=== PATIENT | male | born 1965 | race African-American/Black ===

== ENCOUNTER 2023-04-17 15:30 | Inpatient (IN) | payer BC, OTHER ==
[~2023-04-17] VITALS: Ht 180.3 cm; Wt 104.1 kg
[2023-04-17 16:46] LABS: Basophils # (auto) 0 10 ^3/uL (0-0.2); Basophils % (auto) 0.4 % (0.0-2.0); Eosinophils # (auto) 0.2 10 ^3/uL (0-0.8); Eosinophils % (auto) 2.5 % (0.0-7.0); Hematocrit 48.7 % (41.0-53.0); Hemoglobin 16.8 g/dL (13.5-17.5); Lymphocytes # (auto) 1.6 10 ^3/uL (0.4-5.4); Lymphocytes % (auto) 18.5 % (10.0-50.0); Mean Corpuscular Hemoglobin 31.1 pg (28.0-32.0); Mean Corpuscular Hgb Conc. 34.6 g/dL (32.0-36.0); Mean Corpuscular Volume 90.1 fL (80.0-100.0); Monocytes # (auto) 0.6 10 ^3/uL (0-1.3); Monocytes % (auto) 6.3 % (0.0-12.0); Neutrophils # (auto) 6.5 10 ^3/uL (1.6-8.6); Neutrophils % (auto) 72.3 % (37.0-80.0); Nucleated Red Blood Cells % 0.1 %; Red Blood Cells 5.41 10^6/uL (4.5-5.90); Red Cell Distribution Width 13.5 % (11.8-14.3); White Blood Cell 8.9 10^3/uL (4.4-10.8)
[2023-04-17 17:10] LABS: Albumin 4.6 g/dL (3.4-5.0); Calcium 9.4 mg/dL (8.5-10.1)
[2023-04-17 17:14] LABS: BUN/Creatinine Ratio 9.2 (10.0-20.0); Bilirubin, Total 0.5 mg/dL (0.2-1.0); Total Protein 7.6 g/dL (6.4-8.2)
[2023-04-17 23:33] LABS: Urine Bacteria NONE SEEN /hpf (None Seen); Urine Blood Negative /uL (Negative); Urine Specific Gravity 1.006 (1.001-1.035); Urine WBC 1 /hpf (0 - 3)
[2023-04-18] MEDS ORDERED: ONDANSETRON HCL 4 MG/2 ML VIAL IV PRN (01:00)
[2023-04-18] MEDS ORDERED: DEXTROSE (50%) 50ML SYRG IV PRN (01:00)
[2023-04-18] MEDS ORDERED: TEMAZEPAM 15 MG CAP PO PRN (01:00)
[2023-04-18] MEDS ORDERED: ACETAMINOPHEN 325 MG TAB PO PRN (01:00)
[2023-04-18] MEDS ORDERED: cloNIDine HCL 0.1 MG TAB PO PRN (01:00)
[2023-04-18] MEDS: ACCU-CHEK COMFORT CURVE STRIP VI SCH ×4 (06:41→21:33)
[2023-04-18 06:51] LABS: BUN/Creatinine Ratio 10.3 (10.0-20.0); Calcium 9.1 mg/dL (8.5-10.1); Potassium 3.6 mmol/L (3.5-5.1)
[2023-04-18] MEDS: InsuLIN REG 1unit/0.01ml Soln (100units/ml) SC SCH ×4 (06:56→21:35)
[2023-04-18 09:39] VITALS: BP 127/88
[2023-04-18] MEDS: LISINOPRIL 10 MG TAB PO SCH (10:41)
[2023-04-18] MEDS: PANTOPRAZOLE 40 MG TAB PO SCH (10:42)
[2023-04-18] MEDS: ASPirin 81 mg TAB PO SCH (10:42)
[2023-04-18] MEDS: ENOXAPARIN SOD 40 MG/0.4 ML SYRINGE SC SCH (10:43)
[2023-04-18 11:00] VITALS: BP 110/54
[2023-04-18 13:00] VITALS: BP_SYST 122; BP_SYST 167; BP_DIAS 113; BP_DIAS 73
[2023-04-18] MEDS ORDERED: LORazepam 2MG/ML-1ML VIAL IV ONE (16:15)
[2023-04-18 17:00] VITALS: BP 131/81
[2023-04-18 22:00] VITALS: BP 103/67
[2023-04-18] MEDS ORDERED: ATORVASTATIN 20 MG TAB PO SCH (22:00)
[2023-04-19 03:00] VITALS: BP 103/67
[2023-04-19 05:00] VITALS: BP 121/65
[2023-04-19 05:16] LABS: Basophils # (auto) 0 10 ^3/uL (0-0.2); Basophils % (auto) 0.6 % (0.0-2.0); Eosinophils # (auto) 0.2 10 ^3/uL (0-0.8); Eosinophils % (auto) 4.2 % (0.0-7.0); Hematocrit 46.1 % (41.0-53.0); Hemoglobin 16.2 g/dL (13.5-17.5); Lymphocytes # (auto) 1.6 10 ^3/uL (0.4-5.4); Lymphocytes % (auto) 30.8 % (10.0-50.0); Mean Corpuscular Hemoglobin 31.2 pg (28.0-32.0); Mean Corpuscular Volume 89.1 fL (80.0-100.0); Monocytes # (auto) 0.6 10 ^3/uL (0-1.3); Monocytes % (auto) 11.2 % (0.0-12.0); Neutrophils # (auto) 2.7 10 ^3/uL (1.6-8.6); Neutrophils % (auto) 53.2 % (37.0-80.0); Nucleated Red Blood Cells % 0.1 %; Red Blood Cells 5.18 10^6/uL (4.5-5.90); Red Cell Distribution Width 13.5 % (11.8-14.3); White Blood Cell 5.1 10^3/uL (4.4-10.8)
[2023-04-19 05:37] LABS: BUN/Creatinine Ratio 12.8 (10.0-20.0); Calcium 9.5 mg/dL (8.5-10.1); Potassium 3.8 mmol/L (3.5-5.1)
[2023-04-19] MEDS: InsuLIN REG 1unit/0.01ml Soln (100units/ml) SC SCH (06:14)
[2023-04-19] MEDS: ACCU-CHEK COMFORT CURVE STRIP VI SCH (06:14)
[2023-04-19 09:00] VITALS: BP 145/86
[2023-04-19] MEDS ORDERED: LISI10TA34 PO (09:51)
[2023-04-19] MEDS: ASPirin 81 mg TAB PO SCH (10:00)
[2023-04-19] MEDS: ENOXAPARIN SOD 40 MG/0.4 ML SYRINGE SC SCH (10:00)
[2023-04-19] MEDS: PANTOPRAZOLE 40 MG TAB PO SCH (10:00)
[2023-04-19] MEDS ORDERED: THIAMINE 100mg/ml INJ (200mg/2ml VIAL) IV SCH (10:00)
[2023-04-19] MEDS ORDERED: FOLIC ACID 1 MG in D5W 5% 50 ML INJ SCH (10:00)
[2023-04-19] MEDS: LISINOPRIL 10 MG TAB PO SCH (10:07)
[2023-04-19 11:01] VITALS: BP 145/86
== END 2023-04-19 11:40 | disposition home or self-care (01) | DRG 93 ==
LOC: EDBD 15:30 → ER 15:30 → OVERFLOW 04-18 00:56 → EAST 04-18 08:43
PROVIDERS: ADMIT Nurse Practitioner; ATTEND Internal Medicine Pulmonary Disease
DX: R20.2 Paresthesia of skin (principal); I16.0 Hypertensive urgency; M19.90 Unspecified osteoarthritis, unspecified site; I10 Essential (primary) hypertension; E11.9 Type 2 diabetes mellitus without complications; E66.01 Morbid (severe) obesity due to excess calories; Z68.32 Body mass index [BMI] 32.0-32.9, adult; F17.210 Nicotine dependence, cigarettes, uncomplicated; R20.0 Anesthesia of skin; I25.2 Old myocardial infarction
CPT/HCPCS: 36415; 70450; 70551; 71045; 80048; 80053; 81001; 82962; 83036; 83880; 84484; 85025; 85379; 93005; 93306; 94660; G0378; J1815; J7060